=== PATIENT | female | born 1970 | race Caucasian/White ===

== ENCOUNTER 2016-06-17 07:32 | Emergency (ER) | payer OTHER ==
--- NOTE | ~2016-06-17 | CT4 ---
[facility] A Service of [facility] & [facility] RADIOLOGY TEXT RESULTS PATIENT: JOVANI SAENZ LOCATION: [facility] : [birth year] UNIT #: [id number] AGE: [address]: Jose Ann MD SEX: F ORDER DR: [id number] [facility] [address] [place], [place] [address] [id number] E MR#: [id number] Acc #: [id number] NAME: JOVANI SAENZ : 1970 SEX: F STUDY DATE/TIME: 06/17/2016 7:59 UNIT: [facility] ROOM: STUDY DESCRIPTION: CT Abd and Pelv Wo Cont Attending Physician: Jose Ann M.D. Ordering Physician: Jose Ann M.D. Primary Care Physician: Shruti Lauren M.D. MEDICAL IMAGING REPORT This report is preliminary unless electronic signature is present ADDENDUM The above-referenced stones stacked in the distal ureter is on the right. There are what is favored to represent several stones stacked in the distal right ureter. There are no radiodense calculi in the left ureter. Dictated by... Gurinder Matthews M.D. THIS IS AN ELECTRONICALLY VERIFIED REPORT Gurinder Matthews M.D. at 06/21/2016 7:15 AM [place] TD: 06/19/2016 15:04 JOB #: [id number] MEDICAL IMAGING REPORT Page 1 of 1 COPY
[2016-06-17 07:28] LABS: URINE SOURCE CLEAN CATCH
[2016-06-17 07:35] LABS: URINE APPEARANCE CLOUDY; URINE BILIRUBIN NEG (NEG); URINE BLOOD 3+ (NEG); URINE COLOR YELLOW; URINE GLUCOSE NEG (NEG); URINE KETONE NEG (NEG); URINE LEUKOCYTE ESTERASE NEG (NEG); URINE NITRATE NEG (NEG); URINE PROTEIN NEG (NEG); URINE SPECIFIC GRAVITY 1.028 (1.003-1.035); URINE UROBILINOGEN 0.2 MG/DL (NEG)
[2016-06-17 07:36] LABS: BASOPHIL% 0.3 % (0-2.5); EOSINOPHIL# 0.2 X10e3 (0-0.7); EOSINOPHIL% 1.5 % (0.0-7.0); HEMOGLOBIN 14.8 gm/dL (12.0-16.0); LYMPHOCYTE# 1.9 X10e3 (1.0-3.5); LYMPHOCYTE% 15.1 % (17.0-45.0); MEAN CORPUSCULAR HEMOGLOBIN 28.7 PG (28-34); MEAN PLATELET VOLUME 9.7 FL (6.5-11.5); MONOCYTE# 1.1 X10e3 (0-1.0); MONOCYTE% 9.1 % (3.0-12.0); NEUTROPHIL# 9.3 X10e3 (1.5-7.1); PLATELET COUNT 186 X10e3 (140-420); RED BLOOD COUNT 5.17 X10e (3.90-5.30); RED CELL DISTRIBUTION WIDTH 14.4 % (11.0-15.5); WHITE BLOOD COUNT 12.6 X10e3 (4.0-10.5)
[2016-06-17 07:38] LABS: CULTURE INDICATED? YES; URBCS1 AUWI INNUM /[HPF] (0-2); URINE BACTERIA AUWI 1+ (NEGATIVE); URINE SQUAMOUS EPITHELIAL CELL FEW /[HPF]
[2016-06-17 07:45] LABS: DIFF IND NO
[2016-06-17 07:59] LABS: CREATININE SERUM 1.1 mg/dL (0.6-1.4); GLOM FILT RATE Estimated 56.6 mL/min (>60); POTASSIUM 3.7 mmol/L (3.5-5.1)
== END 2016-06-17 10:10 | disposition home or self-care (01) ==
LOC: CED 07:32
PROVIDERS: Emergency Medicine
DX: N13.2 Hydronephrosis with renal and ureteral calculous obstruction (principal); Z87.442 Personal history of urinary calculi; I10 Essential (primary) hypertension; F17.200 Nicotine dependence, unspecified, uncomplicated; Z88.5 Allergy status to narcotic agent; Z79.899 Other long term (current) drug therapy
CPT/HCPCS: 36415; 74176; 80048; 81003; 84703; 85025; 87086; 96361; 96374; 96375; 96376; 99284; J1885; J2270; J2550

== ENCOUNTER → 2016-06-17 | Outpatient (CLI) | payer OTHER ==
[~2016-06-17] MED LIST: ALBUTEROL17 GM NEB; ASPIRINEC; C PAP; FLEXERIL10 MG PO; IBUPROFEN; KEFLEX500 MG PO; LIPITOR; LOPRESSOR; VICODIN 5/1 TAB 5/50 PO; ZITHROMAX
--- NOTE | ~2016-06-17 | CR7 ---
[facility] A Service of [facility] & [facility] RADIOLOGY TEXT RESULTS PATIENT: JOVANI SAENZ LOCATION: [facility] : [birth year] UNIT #: [id number] AGE: [address]: TIANA PATEL II, DC SEX: F ORDER DR: [id number] [address] [address] [id number] O MR#: [id number] Acc #: [id number] NAME: JOVANI SAENZ : 1970 SEX: F STUDY DATE/TIME: 06/17/2016 17:41 UNIT: [facility] ROOM: STUDY DESCRIPTION: CR Abdomen Single AP View Attending Physician: Tiana Patel Ordering Physician: Tiana Gale M.D. Primary Care Physician: Shruti Lauren M.D. MEDICAL IMAGING REPORT This report is preliminary unless electronic signature is present. EXAM Abdomen 1-view 06/25/2016 1741 hours HISTORY 45-year-old woman with 3 kidney stones on the right, pain for [address] abdomen earlier today at 0759 hours FINDINGS Cone view of the abdomen and cone view of the pelvis are performed and somewhat limited by large body habitus. There is some motion artifact on the images through the upper abdomen. The stones demonstrated within the right kidney are difficult to detect. I cannot clearly discriminate the distal right ureteral stone seen at the right ureterovesical junction measuring [address]. There are left-sided pelvic calcifications most consistent with phleboliths. IMPRESSION Exam is limited by size and motion. The previously demonstrated stones in the right kidney are difficult if not impossible to detect. The stone at the right ureterovesical junction measuring [address] scan is difficult to identify. There are lower pelvic phleboliths which are visualized. There are bilateral Essure devices within the fallopian tubes. Dictated by... Ami Rosales M.D. THIS IS AN ELECTRONICALLY VERIFIED REPORT Ami Rosales M.D. at 06/18/2016 2:30 PM JUDITH/radha TD: 06/18/2016 10:06 JOB #: [id number] [facility] A Service of [facility] & [facility] RADIOLOGY TEXT RESULTS PATIENT: JOVANI SAENZ [id number] : [birth year] UNIT #: [id number] AGE: [address]: JORGE THOMAS, TIANA Little [place] SEX: F ORDER DR: MEDICAL IMAGING REPORT Page 1 of 1
== END | disposition home or self-care (01) ==
LOC: SRAD 17:30
DX: N20.0 Calculus of kidney (principal); I87.8 Other specified disorders of veins
CPT/HCPCS: 74000